=== PATIENT | female | born 1950 | race Caucasian/White ===

== ENCOUNTER 2022-09-28 16:21 | Emergency (ER) | payer MEDICARE, OTHER ==
[~2022-09-28] VITALS: Ht 160 cm; Wt 84.0 kg
[2022-09-28] MEDS ORDERED: SIMVASTATIN10 MG PO (18:03)
[2022-09-28] MEDS ORDERED: MYRBETRIQ25 MG (18:32)
[2022-09-28] MEDS ORDERED: METFORMIN500 M2 PO (18:33)
[2022-09-28] MEDS ORDERED: SYNTHROID25 MCG PO (18:33)
[2022-09-28 18:47] LABS: URINE BILIRUBIN - DIPSTICK NEGATIVE (NEGATIVE); URINE BLOOD DIPSTICK TRACE-INTACT (NEGATIVE); URINE COLOR YELLOW; URINE GLUCOSE - DIPSTICK NEGATIVE (NEGATIVE); URINE KETONE NEGATIVE (NEGATIVE); URINE LEUK ESTERASE TRACE (NEGATIVE); URINE PH 5.5 (4.5-8.0); URINE PROTEIN - DIPSTICK NEGATIVE (NEG-TRACE); URINE UROBILINOGEN - DIPSTICK 0.2 E.U./dL (0.2)
[2022-09-28 19:01] LABS: URINE NITRITE - DIPSTICK POSITIVE (Negative)
[2022-09-28 19:13] LABS: URINE BACTERIA FEW hpf; URINE RBC 0-2 RBC/hpf (0-5); URINE SQUAMOUS EPITHELIAL CELL FEW EPI/hpf (0-FEW)
[2022-09-28] MEDS ORDERED: MYRBETRIQ25 MG PO (19:19)
[2022-09-28] MEDS ORDERED: BACTRIM DS1 TAB PO (19:19)
[2022-09-28 19:33] VITALS: BP 139/72
== END 2022-09-28 19:33 | disposition home or self-care (01) ==
LOC: EDBD 16:21 → ED 16:21
PROVIDERS: Family Medicine
DX: N39.0 Urinary tract infection, site not specified (principal); B96.20 Unspecified Escherichia coli [E. coli] as the cause of diseases classified elsewhere; Z87.440 Personal history of urinary (tract) infections